=== PATIENT | male | born 1970 | race Caucasian/White ===

== ENCOUNTER 2017-04-21 12:45 | Emergency (ER) | payer SELFPAY ==
[~2017-04-21] VITALS: Ht 180.3 cm; Wt 87.7 kg
[2017-04-21 12:56] VITALS: BP 96/66
== END 2017-04-21 16:30 | disposition left against medical advice (07) ==
LOC: EME 12:45
DX: R42 Dizziness and giddiness (principal); Z53.21 Procedure and treatment not carried out due to patient leaving prior to being seen by health care provider

== ENCOUNTER 2017-04-22 16:39 | Observation (INO) | payer OTHER ==
[~2017-04-22] VITALS: Ht 180.3 cm; Wt 89.9 kg
[2017-04-22 17:33] LABS: HEMATOCRIT 38.2 % (38.0-50.0); HEMOGLOBIN 12.9 G/DL (12.5-16.6); MCH 28.7 PG (29.0-34.0); MCHC 33.8 G/DL (30.0-36.0); MCV 84.9 FL (86-99); PLATELET COUNT 85 K/uL (156-360); RBC DIS.WIDTH-CV 14.7 % (11.8-14.6); RBC DIS.WIDTH-SD 45.4 % (39-53); WHITE BLOOD COUNT 6.4 K/uL (4.1-10.2)
[2017-04-22 17:42] LABS: CHLORIDE 109 mEq/L (99-109); MAGNESIUM 1.9 mg/dL (1.3-2.7); POTASSIUM 3.9 mEq/L (3.7-5.4); SODIUM 142 mEq/L (136-147)
[2017-04-22 17:44] LABS: GLUCOSE 97 mg/dL (70-99); TOTAL PROTEIN 6.7 g/dL (6.4-8.3)
[2017-04-22 17:46] LABS: TOTAL BILIRUBIN 0.4 mg/dL (0.0-1.0)
[2017-04-22 17:47] LABS: ALKALINE PHOSPHATASE 90 IU/L (3-129)
[2017-04-22 17:48] LABS: GFR ESTIMATE (CALCULATED) 39 mL/min/ (58.99-99999)
[2017-04-22 17:49] LABS: AST (GOT) 12 IU/L (2-34); UREA NITROGEN (BUN) 17 mg/dL (9-23)
[2017-04-22 17:51] LABS: ALT (GPT) 13 IU/L (3-49); LIPASE 125 U/L (1.0-51.0)
[2017-04-22 17:57] LABS: TROP-I INTERPRETATION NEGATIVE; TROPONIN-I < 0.01 ng/mL (0.0-0.30)
[2017-04-22 21:46] LABS: APPEARANCE CLEAR ((CLEAR)); BILIRUBIN NEGATIVE; BLOOD NEGATIVE; COLOR YELLOW ((YELLOW)); GLUCOSE (STRIP) NEGATIVE; KETONES NEGATIVE; LEUKOCYTES NEGATIVE; NITRITE NEGATIVE; PROTEIN (STRIP) 30; SPECIFIC GRAVITY 1.016 (1.000-1.030); UROBILINOGEN 0.2 MG/DL (0.2-1.0)
[2017-04-23] MEDS ORDERED: CLONAZEPAM2 MG PO (00:05)
[2017-04-23] MEDS ORDERED: LYRICA300 MG PO (00:06)
[2017-04-23] MEDS ORDERED: PREZCOBIX 8001 EACH PO (00:07)
[2017-04-23] MEDS ORDERED: ABACAVIR-LAMIV1 EAC1 PO (00:07)
[2017-04-23] MEDS ORDERED: ENDOCET 5-3251 EACH PO (00:09)
[2017-04-23] MEDS ORDERED: DEXILANT60 MG PO (00:10)
[2017-04-23] MEDS ORDERED: LEVETIRACETAM500 MG PO (00:12)
[2017-04-23] MEDS ORDERED: LORAZEPAM1 MG PO (00:13)
[2017-04-23 00:15] LABS: PTT 30.5 SEC (25-37)
[2017-04-23 04:17] VITALS: BP 109/60
[2017-04-23 06:40] LABS: HEMATOCRIT 34.1 % (38.0-50.0); MCH 28.1 PG (29.0-34.0); MCHC 32.3 G/DL (30.0-36.0); MCV 87.2 FL (86-99); RBC DIS.WIDTH-CV 15.1 % (11.8-14.6); RED BLOOD COUNT 3.91 M/uL (4.00-5.50); WHITE BLOOD COUNT 3.7 K/uL (4.1-10.2)
[2017-04-23 06:45] LABS: TROP-I INTERPRETATION NEGATIVE; TROPONIN-I < 0.01 ng/mL (0.0-0.30)
[2017-04-23 06:51] LABS: TROP-I INTERPRETATION NEGATIVE; TROPONIN-I < 0.01 ng/mL (0.0-0.30)
[2017-04-23 06:54] LABS: CHLORIDE 113 MEQ/L (99-109); CREATININE 1.7 MG/DL (0.6-1.3); GFR ESTIMATE (CALCULATED) 47 mL/min/ (58.99-99999); GLUCOSE 87 mg/dL (70-99); SODIUM 143 MEQ/L (136-147); UREA NITROGEN (BUN) 14 mg/dL (9-23)
[2017-04-23 06:59] LABS: PLAT.SUFFICIENCY DECREASED
[2017-04-23 07:05] LABS: PLATELET COUNT 56 K/uL (156-360)
[2017-04-23 09:00] VITALS: BP 120/72
[2017-04-23 11:03] LABS: ALBUMIN 3.1 G/DL (3.2-4.8)
== END 2017-04-23 16:18 | disposition home or self-care (01) ==
LOC: EME 16:39 → EDOF 23:33 → ENRESERV 23:34 → EDOF 04-23 00:18 → 5WEST 04-23 00:58
PROVIDERS: Hospitalist; Physician Assistant Medical
DX: I95.1 Orthostatic hypotension (principal); Z21 Asymptomatic human immunodeficiency virus [HIV] infection status; N17.9 Acute kidney failure, unspecified; E86.0 Dehydration; G47.30 Sleep apnea, unspecified; N18.9 Chronic kidney disease, unspecified; Z90.49 Acquired absence of other specified parts of digestive tract; Z82.49 Family history of ischemic heart disease and other diseases of the circulatory system
CPT/HCPCS: 71045; 76770; 80048; 80053; 81003; 82040; 83605; 83690; 83735; 84484; 85027; 85379; 85610; 85730; 86355 90; 86359 90; 86360 90; 87040; 87536; 93005; 99281; 99285; G0378; J1650; J2405; J3010; J7030; J7050

== ENCOUNTER 2017-06-18 18:40 | Inpatient (IN) | payer OTHER ==
[~2017-06-18] VITALS: Ht 180.3 cm; Wt 93.1 kg
[~2017-06-18 18:40] MED LIST: ABACAVIR-LAMIV1 EAC1 PO; CLONAZEPAM2 MG PO; DEXILANT60 MG PO; ENDOCET 5-3251 EACH PO; LEVETIRACETAM500 MG PO; LORAZEPAM1 MG PO; LYRICA300 MG PO; PREZCOBIX 8001 EACH PO
[2017-06-18 19:36] LABS: BASOPHIL (%) 0.5 % (0-1); EOSINOPHIL (%) 5.6 % (0-5); EOSINOPHIL COUNT 0.4 K/uL (0-0.3); HEMATOCRIT 34.4 % (38.0-50.0); HEMOGLOBIN 11.3 G/DL (12.5-16.6); LYMPHOCYTE (%) 27.1 % (15-42); LYMPHOCYTE COUNT 1.7 K/uL (1.0-2.8); MCH 28.3 PG (29.0-34.0); MCHC 32.8 G/DL (30.0-36.0); MONOCYTE (%) 7.7 % (3-12); MONOCYTE COUNT 0.5 K/uL (0-0.8); NEUTROPHIL (%) 58.1 % (45-76); NEUTROPHIL COUNT 3.6 K/uL (1.8-6.4); PLATELET COUNT 74 K/uL (156-360); RBC DIS.WIDTH-CV 16.4 % (11.8-14.6); RBC DIS.WIDTH-SD 50.5 % (39-53); WHITE BLOOD COUNT 6.2 K/uL (4.1-10.2)
[2017-06-18 19:52] LABS: LIPASE 61 U/L (1.0-51.0)
[2017-06-18 19:59] LABS: APPEARANCE CLEAR ((CLEAR)); BILIRUBIN NEGATIVE; BLOOD NEGATIVE; COLOR YELLOW ((YELLOW)); GLUCOSE (STRIP) NEGATIVE; KETONES NEGATIVE; LEUKOCYTES NEGATIVE; NITRITE NEGATIVE; PROTEIN (STRIP) 100; SPECIFIC GRAVITY 1.019 (1.000-1.030); UROBILINOGEN 0.2 MG/DL (0.2-1.0)
[2017-06-18 20:09] LABS: BACTERIA NONE SEEN /HPF; EPITHELIAL CELLS RARE /HPF; HYALINE CASTS 0-5 /LPF; MUCUS TRACE /LPF; RED BLOOD CELLS 0-5 /HPF (0-5); WHITE BLOOD CELLS 0-5 /HPF (0-5)
[2017-06-18 20:20] LABS: ALBUMIN 3.5 g/dL (3.2-4.8)
[2017-06-18 20:21] LABS: CHLORIDE 112 mEq/L (99-109); POTASSIUM 4.2 mEq/L (3.7-5.4); SODIUM 141 mEq/L (136-147)
[2017-06-18 20:23] LABS: GLUCOSE 98 mg/dL (70-99); TOTAL PROTEIN 6.1 g/dL (6.4-8.3)
[2017-06-18 20:25] LABS: TOTAL BILIRUBIN 0.5 mg/dL (0.0-1.0)
[2017-06-18 20:26] LABS: ALKALINE PHOSPHATASE 102 IU/L (3-129)
[2017-06-18 20:27] LABS: CREATININE 1.7 mg/dL (0.6-1.3); GFR ESTIMATE (CALCULATED) 47 mL/min/ (58.99-99999)
[2017-06-18 20:28] LABS: AST (GOT) 20 IU/L (2-34); UREA NITROGEN (BUN) 15 mg/dL (9-23)
[2017-06-18 20:29] LABS: ALT (GPT) 20 IU/L (3-49)
[2017-06-19] VITALS (9 sets, daily range): BP systolic 75–102; BP diastolic 43–61
[2017-06-19] MEDS ORDERED: KLONOPIN2 MG PO (09:48)
[2017-06-19] MEDS ORDERED: LYRICA300 MG PO (09:49)
[2017-06-19] MEDS ORDERED: PERCOCET 5/31 TABLET PO (09:49)
[2017-06-19] MEDS ORDERED: PROTONIX40 MG PO (09:49)
[2017-06-20 00:04] VITALS: BP 86/62
[2017-06-20 03:15] VITALS: BP 94/54
[2017-06-20 06:02] LABS: BASOPHIL (%) 0.7 % (0-1); EOSINOPHIL (%) 7.3 % (0-5); EOSINOPHIL COUNT 0.3 K/uL (0-0.3); HEMATOCRIT 30.1 % (38.0-50.0); HEMOGLOBIN 9.8 G/DL (12.5-16.6); IMMATURE GRANULOCYTE (%) 0.9 % (0.0-0.7); LYMPHOCYTE (%) 29.4 % (15-42); LYMPHOCYTE COUNT 1.3 K/uL (1.0-2.8); MCH 27.7 PG (29.0-34.0); MCHC 32.6 G/DL (30.0-36.0); MONOCYTE (%) 7.9 % (3-12); MONOCYTE COUNT 0.4 K/uL (0-0.8); NEUTROPHIL (%) 53.8 % (45-76); NEUTROPHIL COUNT 2.4 K/uL (1.8-6.4); PLATELET COUNT 67 K/uL (156-360); RBC DIS.WIDTH-CV 16.6 % (11.8-14.6); RBC DIS.WIDTH-SD 50.9 % (39-53); RED BLOOD COUNT 3.54 M/uL (4.00-5.50); WHITE BLOOD COUNT 4.5 K/uL (4.1-10.2)
[2017-06-20 06:17] VITALS: BP 90/56
[2017-06-20 06:30] LABS: CHLORIDE 115 MEQ/L (99-109); CREATININE 1.7 MG/DL (0.6-1.3); GFR ESTIMATE (CALCULATED) 47 mL/min/ (58.99-99999); GLUCOSE 93 mg/dL (70-99); POTASSIUM 3.7 MEQ/L (3.7-5.4); SODIUM 141 MEQ/L (136-147); UREA NITROGEN (BUN) 11 mg/dL (9-23)
[2017-06-20 07:47] VITALS: BP 94/54
[2017-06-20 10:09] LABS: ALBUMIN 2.9 G/DL (3.2-4.8); ALKALINE PHOSPHATASE 71 IU/L (3-129); ALT (GPT) 10 IU/L (3-49); AST (GOT) 13 IU/L (2-34); DIRECT BILIRUBIN 0.1 mg/dL (0.0-0.3); PHOSPHORUS 3.6 mg/dL (2.5-4.9); TOTAL BILIRUBIN 0.2 MG/DL (0.0-1.0); TOTAL PROTEIN 4.8 G/DL (6.4-8.3)
[2017-06-20 16:48] VITALS: BP 100/58
[2017-06-20 21:09] LABS: CD4/CD8 Ratio 0.22 (0.86-5.00)
[2017-06-20 23:36] VITALS: BP 106/61
[2017-06-21 01:24] VITALS: BP 123/70
[2017-06-21 05:55] LABS: HEMATOCRIT 29.6 % (38.0-50.0); HEMOGLOBIN 9.8 G/DL (12.5-16.6); MCH 27.8 PG (29.0-34.0); MCHC 33.1 G/DL (30.0-36.0); MCV 84.1 FL (86-99); PLATELET COUNT 77 K/uL (156-360); RBC DIS.WIDTH-CV 16.4 % (11.8-14.6); RBC DIS.WIDTH-SD 49.2 % (39-53); RED BLOOD COUNT 3.52 M/uL (4.00-5.50); WHITE BLOOD COUNT 4.5 K/uL (4.1-10.2)
[2017-06-21 06:24] LABS: CHLORIDE 113 MEQ/L (99-109); GFR ESTIMATE (CALCULATED) 39 mL/min/ (58.99-99999); GLUCOSE 89 mg/dL (70-99); SODIUM 140 MEQ/L (136-147); UREA NITROGEN (BUN) 13 mg/dL (9-23)
[2017-06-21 07:19] VITALS: BP 114/69
[2017-06-21 15:04] VITALS: BP 109/64
[2017-06-21 23:53] VITALS: BP 108/66
[2017-06-22 06:17] LABS: HEMOGLOBIN 10.3 G/DL (12.5-16.6); MCH 28.1 PG (29.0-34.0); MCHC 33.2 G/DL (30.0-36.0); MCV 84.5 FL (86-99); PLATELET COUNT 93 K/uL (156-360); RBC DIS.WIDTH-CV 16.7 % (11.8-14.6); RBC DIS.WIDTH-SD 50.6 % (39-53); RED BLOOD COUNT 3.67 M/uL (4.00-5.50); WHITE BLOOD COUNT 4.2 K/uL (4.1-10.2)
[2017-06-22 06:36] LABS: CHLORIDE 111 MEQ/L (99-109); CREATININE 1.8 MG/DL (0.6-1.3); GFR ESTIMATE (CALCULATED) 44 mL/min/ (58.99-99999); GLUCOSE 91 mg/dL (70-99); POTASSIUM 3.9 MEQ/L (3.7-5.4); SODIUM 141 MEQ/L (136-147); UREA NITROGEN (BUN) 13 mg/dL (9-23)
[2017-06-22 08:06] VITALS: BP 118/70
[2017-06-22] MEDS ORDERED: ZOFRAN4 MG PO (10:46)
[2017-06-22] MEDS ORDERED: FLAGYL500 MG PO (10:46)
[2017-06-22 12:26] VITALS: BP 105/61
[2017-06-22 14:13] VITALS: BP 107/66
[2017-06-22 16:14] VITALS: BP 120/65
[2017-06-23] MEDS ORDERED: MOTRIN600 MG PO (19:27)
[2017-06-25 06:39] LABS: QGTB-NIL 0.11 IU/mL (()); QUANTIFERON TB GOLD NEGATIVE (Negative); TB AG-NIL 0.05 IU/mL (())
== END 2017-06-22 17:29 | disposition home health service (06) | DRG 385 ==
LOC: EME 18:40 → 5EAST 23:23 → EDOF 23:23 → ENRESERV 23:24 → 5EAST 06-19 01:12
PROVIDERS: Emergency Medicine; Hospitalist; Internal Medicine
DX: K51.50 Left sided colitis without complications (principal); B20 Human immunodeficiency virus [HIV] disease; E27.40 Unspecified adrenocortical insufficiency; R65.10 Systemic inflammatory response syndrome (SIRS) of non-infectious origin without acute organ dysfunction; N17.9 Acute kidney failure, unspecified; E86.0 Dehydration; R68.0 Hypothermia, not associated with low environmental temperature; N18.3 Chronic kidney disease, stage 3 (moderate); G62.9 Polyneuropathy, unspecified; Z91.14 Patient's other noncompliance with medication regimen; Z91.19 Patient's noncompliance with other medical treatment and regimen
CPT/HCPCS: 74176; 80048; 80053; 80076; 80400; 81003; 82533 91; 82948; 83605; 83690; 84100; 85025; 85027; 86355 90; 86359 90; 86360 90; 86480 90; 87177; 87206; 87329; 87493; 87506; 99281; 99285; J0744; J0834; J1644; J2270; J2405; J7030; J7040; J7050; S0030

== ENCOUNTER 2017-06-23 16:42 | Emergency (ER) | payer OTHER ==
[~2017-06-23] VITALS: Ht 180.3 cm; Wt 93.0 kg
[~2017-06-23 16:42] MED LIST changes: +FLAGYL500 MG PO; +KLONOPIN2 MG PO; +PERCOCET 5/31 TABLET PO; +PROTONIX40 MG PO; +ZOFRAN4 MG PO
[2017-06-23] MEDS ORDERED: MOTRIN600 MG PO (19:27)
[2017-06-23 19:39] VITALS: BP 124/78
== END 2017-06-23 19:40 | disposition home or self-care (01) ==
LOC: EME 16:42
DX: S93.602A Unspecified sprain of left foot, initial encounter (principal); W01.0XXA Fall on same level from slipping, tripping and stumbling without subsequent striking against object, initial encounter
CPT/HCPCS: 73630; 99281; 99284

== ENCOUNTER 2017-06-30 13:39 | Emergency (ER) | payer OTHER ==
[~2017-06-30] VITALS: Ht 180.3 cm; Wt 89.1 kg
[~2017-06-30 13:39] MED LIST changes: +MOTRIN600 MG PO
[2017-06-30 14:53] LABS: HEMATOCRIT 42.1 % (38.0-50.0); MCH 28.3 PG (29.0-34.0); MCHC 32.8 G/DL (30.0-36.0); MCV 86.3 FL (86-99); RBC DIS.WIDTH-CV 18.1 % (11.8-14.6); RBC DIS.WIDTH-SD 56.5 % (39-53); WHITE BLOOD COUNT 4.8 K/uL (4.1-10.2)
[2017-06-30 14:54] LABS: HEMOGLOBIN 13.8 G/DL (12.5-16.6); PLATELET COUNT 163 K/uL (156-360); RED BLOOD COUNT 4.88 M/uL (4.00-5.50)
[2017-06-30 15:02] LABS: CHLORIDE 106 mEq/L (99-109); POTASSIUM 4.3 mEq/L (3.7-5.4); SODIUM 141 mEq/L (136-147)
[2017-06-30 15:03] LABS: GLUCOSE 95 mg/dL (70-99)
[2017-06-30 15:07] LABS: CREATININE 1.9 mg/dL (0.6-1.3); GFR ESTIMATE (CALCULATED) 41 mL/min/ (58.99-99999)
[2017-06-30 15:08] LABS: UREA NITROGEN (BUN) 12 mg/dL (9-23)
[2017-06-30 19:41] LABS: APPEARANCE CLEAR ((CLEAR)); BILIRUBIN NEGATIVE; BLOOD SMALL; COLOR YELLOW ((YELLOW)); GLUCOSE (STRIP) NEGATIVE; KETONES NEGATIVE; LEUKOCYTES NEGATIVE; NITRITE NEGATIVE; PROTEIN (STRIP) 100; SPECIFIC GRAVITY 1.017 (1.000-1.030); UROBILINOGEN 0.2 MG/DL (0.2-1.0)
[2017-06-30 19:44] LABS: BACTERIA NONE SEEN /HPF; EPITHELIAL CELLS RARE /HPF; HYALINE CASTS 0-5 /LPF; MUCUS TRACE /LPF; RED BLOOD CELLS 0-5 /HPF (0-5); UCUL ADDED? NO; WHITE BLOOD CELLS 0-5 /HPF (0-5)
[2017-06-30] MEDS ORDERED: TRAMADOL HCL50 MG PO (20:29)
[2017-06-30 21:46] VITALS: BP 94/69
== END 2017-06-30 21:47 | disposition home or self-care (01) ==
LOC: EME 13:39
PROVIDERS: Nurse Practitioner Family
PROC: 2W39X1Z Immobilization of Left Upper Extremity using Splint (ICD-10-PCS; principal; 2017-06-30)
DX: S42.302A Unspecified fracture of shaft of humerus, left arm, initial encounter for closed fracture (principal); R55 Syncope and collapse; R42 Dizziness and giddiness; W18.39XA Other fall on same level, initial encounter; B20 Human immunodeficiency virus [HIV] disease
CPT/HCPCS: 70450; 71046; 73060; 80048; 81003; 85027; 93005; 99281; 99285; J1885

== ENCOUNTER 2017-07-24 18:39 | Emergency (ER) | payer OTHER ==
[~2017-07-24] VITALS: Ht 180.3 cm; Wt 92.5 kg
[~2017-07-24 18:39] MED LIST changes: +TRAMADOL HCL50 MG PO
[2017-07-24 19:16] LABS: HEMATOCRIT 37.5 % (38.0-50.0); HEMOGLOBIN 12.5 G/DL (12.5-16.6); MCH 29.3 PG (29.0-34.0); MCHC 33.3 G/DL (30.0-36.0); PLATELET COUNT 152 K/uL (156-360); RBC DIS.WIDTH-CV 17.8 % (11.8-14.6); RBC DIS.WIDTH-SD 56.9 % (39-53); RED BLOOD COUNT 4.26 M/uL (4.00-5.50); WHITE BLOOD COUNT 6.3 K/uL (4.1-10.2)
[2017-07-24 19:25] LABS: ALBUMIN 4.1 g/dL (3.2-4.8); CHLORIDE 109 mEq/L (99-109); POTASSIUM 3.6 mEq/L (3.7-5.4); SODIUM 140 mEq/L (136-147)
[2017-07-24 19:28] LABS: TOTAL PROTEIN 7.1 g/dL (6.4-8.3)
[2017-07-24 19:29] LABS: TOTAL BILIRUBIN 0.3 mg/dL (0.0-1.0)
[2017-07-24 19:31] LABS: ALKALINE PHOSPHATASE 108 IU/L (3-129); CREATININE 1.8 mg/dL (0.6-1.3); GFR ESTIMATE (CALCULATED) 44 mL/min/ (58.99-99999); GLUCOSE 46 mg/dL (70-99)
[2017-07-24 19:32] LABS: UREA NITROGEN (BUN) 15 mg/dL (9-23)
[2017-07-24 19:33] LABS: AST (GOT) 14 IU/L (2-34)
[2017-07-24 19:34] LABS: ALT (GPT) 26 IU/L (3-49)
[2017-07-24 19:35] LABS: LIPASE 83 U/L (1.0-51.0)
[2017-07-24 20:23] LABS: APPEARANCE CLEAR ((CLEAR)); BILIRUBIN NEGATIVE; BLOOD NEGATIVE; COLOR COLORLESS ((YELLOW)); GLUCOSE (STRIP) NEGATIVE; KETONES NEGATIVE; LEUKOCYTES NEGATIVE; NITRITE NEGATIVE; PROTEIN (STRIP) NEGATIVE; SPECIFIC GRAVITY 1.003 (1.000-1.030); UCUL ADDED? NO; UROBILINOGEN 0.2 MG/DL (0.2-1.0)
[2017-07-24 22:49] LABS: C DIFF TOXIN POSITIVE (NEGATIVE)
[2017-07-24] MEDS ORDERED: ZOFRAN4 MG SL (22:58)
[2017-07-24] MEDS ORDERED: BENTYL10 MG PO (22:58)
[2017-07-24] MEDS ORDERED: VANCOCIN HCL125 MG PO (22:58)
[2017-07-25 00:22] VITALS: BP 138/91
== END 2017-07-25 00:23 | disposition home or self-care (01) ==
LOC: EME 18:39
PROVIDERS: Physician Assistant
DX: A04.72 Enterocolitis due to Clostridium difficile, not specified as recurrent (principal); B20 Human immunodeficiency virus [HIV] disease; N18.9 Chronic kidney disease, unspecified; K21.9 Gastro-esophageal reflux disease without esophagitis
CPT/HCPCS: 74176; 80053; 81003; 82948; 83690; 85027; 87493; 99281; 99284; J3010; J7030

== ENCOUNTER 2017-08-20 20:49 | Emergency (ER) | payer OTHER ==
[~2017-08-20] VITALS: Ht 180.3 cm; Wt 90.8 kg
[~2017-08-20 20:49] MED LIST changes: +BENTYL10 MG PO; +LYRICA200 MG PO; -PERCOCET 5/31 TABLET PO; +PERCOCET 7.51 TABLET PO; +VANCOCIN HCL125 MG PO; +ZOFRAN4 MG SL
[2017-08-20 21:50] LABS: HEMATOCRIT 37.3 % (38.0-50.0); HEMOGLOBIN 12.3 G/DL (12.5-16.6); MCH 29.2 PG (29.0-34.0); MCV 88.6 FL (86-99); PLATELET COUNT 130 K/uL (156-360); RBC DIS.WIDTH-CV 16.9 % (11.8-14.6); RBC DIS.WIDTH-SD 54.7 % (39-53); RED BLOOD COUNT 4.21 M/uL (4.00-5.50)
[2017-08-20 21:58] LABS: CHLORIDE 112 mEq/L (99-109); SODIUM 142 mEq/L (136-147)
[2017-08-20 22:00] LABS: GLUCOSE 107 mg/dL (70-99)
[2017-08-20 22:04] LABS: CREATININE 1.8 mg/dL (0.6-1.3); GFR ESTIMATE (CALCULATED) 44 mL/min/ (58.99-99999); UREA NITROGEN (BUN) 10 mg/dL (9-23)
[2017-08-20 23:05] LABS: TROP-I INTERPRETATION NEGATIVE; TROPONIN-I < 0.01 ng/mL (0.0-0.30)
[2017-08-21 00:43] VITALS: BP 108/51
== END 2017-08-21 00:44 | disposition home or self-care (01) ==
LOC: EME 20:49
PROVIDERS: Emergency Medicine
DX: R55 Syncope and collapse (principal); E86.0 Dehydration; I45.10 Unspecified right bundle-branch block; B20 Human immunodeficiency virus [HIV] disease
CPT/HCPCS: 80048; 84484; 85027; 93005; 99281; 99284; J7030

== ENCOUNTER 2017-08-21 08:26 | Emergency (ER) | payer OTHER ==
[~2017-08-21] VITALS: Ht 180.3 cm; Wt 92.1 kg
[2017-08-21 08:30] VITALS: BP 105/72
== END 2017-08-21 09:12 | disposition left against medical advice (07) ==
LOC: EME 08:26
DX: M54.5 Low back pain (principal); M62.838 Other muscle spasm; F13.20 Sedative, hypnotic or anxiolytic dependence, uncomplicated; F17.200 Nicotine dependence, unspecified, uncomplicated; Z21 Asymptomatic human immunodeficiency virus [HIV] infection status
CPT/HCPCS: 99281; 99282

== ENCOUNTER 2017-08-22 18:05 | Observation (INO) | payer OTHER ==
[~2017-08-22] VITALS: Ht 180.3 cm; Wt 91.9 kg
[2017-08-22 19:09] LABS: HEMATOCRIT 34.6 % (38.0-50.0); HEMOGLOBIN 11.6 G/DL (12.5-16.6); MCH 29.4 PG (29.0-34.0); MCHC 33.5 G/DL (30.0-36.0); MCV 87.6 FL (86-99); PLATELET COUNT 102 K/uL (156-360); RBC DIS.WIDTH-CV 16.8 % (11.8-14.6); RBC DIS.WIDTH-SD 54.1 % (39-53); RED BLOOD COUNT 3.95 M/uL (4.00-5.50); WHITE BLOOD COUNT 6.1 K/uL (4.1-10.2)
[2017-08-22 19:35] LABS: CHLORIDE 107 mEq/L (99-109); POTASSIUM 3.6 mEq/L (3.7-5.4); SODIUM 137 mEq/L (136-147)
[2017-08-22 19:41] LABS: CREATININE 1.8 mg/dL (0.6-1.3); GFR ESTIMATE (CALCULATED) 44 mL/min/ (58.99-99999)
[2017-08-22 19:42] LABS: GLUCOSE 75 mg/dL (70-99); UREA NITROGEN (BUN) 8 mg/dL (9-23)
[2017-08-23 00:34] LABS: ALBUMIN 3.7 g/dL (3.2-4.8)
[2017-08-23 00:36] LABS: TOTAL PROTEIN 6.3 g/dL (6.4-8.3)
[2017-08-23 00:38] LABS: TOTAL BILIRUBIN 0.3 mg/dL (0.0-1.0)
[2017-08-23 00:39] LABS: ALKALINE PHOSPHATASE 97 IU/L (3-129)
[2017-08-23 00:41] LABS: AST (GOT) 10 IU/L (2-34); DIRECT BILIRUBIN 0.1 mg/dL (0.0-0.3)
[2017-08-23 00:42] LABS: ALT (GPT) 10 IU/L (3-49); LIPASE 63 U/L (1.0-51.0)
[2017-08-23] MEDS ORDERED: STRIBILD TABLE1 EACH PO (00:46)
[2017-08-23 01:10] LABS: TROP-I INTERPRETATION NEGATIVE; TROPONIN-I < 0.01 ng/mL (0.0-0.30)
[2017-08-23 04:16] LABS: SERUM ETHYL ALCOHOL < 10 mg/dL
[2017-08-23 05:15] VITALS: BP 97/55
[2017-08-23 07:30] VITALS: BP 103/58; BP 95/55; BP 99/59
[2017-08-23 11:15] VITALS: BP 92/56
[2017-08-23 17:20] VITALS: BP 118/67
[2017-08-23 19:30] VITALS: BP 111/67
[2017-08-23 23:33] VITALS: BP 89/61
[2017-08-24 04:22] VITALS: BP 96/55
[2017-08-24 09:17] VITALS: BP 115/74
[2017-08-24 17:03] VITALS: BP 115/61
[2017-08-24 20:00] VITALS: BP 132/82
[2017-08-24 23:56] VITALS: BP 109/63
[2017-08-25] VITALS: BP 112/80
[2017-08-25 04:00] VITALS: BP 112/82
[2017-08-25 08:00] VITALS: BP 126/90
[2017-08-25 08:10] LABS: HEMATOCRIT 32.5 % (38.0-50.0); HEMOGLOBIN 10.6 G/DL (12.5-16.6); MCH 28.7 PG (29.0-34.0); MCHC 32.6 G/DL (30.0-36.0); MCV 88.1 FL (86-99); PLATELET COUNT 78 K/uL (156-360); RBC DIS.WIDTH-CV 16.6 % (11.8-14.6); RBC DIS.WIDTH-SD 53.7 % (39-53); RED BLOOD COUNT 3.69 M/uL (4.00-5.50)
[2017-08-25 08:32] LABS: CHLORIDE 114 MEQ/L (99-109); CREATININE 1.7 MG/DL (0.6-1.3); GFR ESTIMATE (CALCULATED) 47 mL/min/ (58.99-99999); GLUCOSE 83 mg/dL (70-99); POTASSIUM 4.1 MEQ/L (3.7-5.4); UREA NITROGEN (BUN) 11 mg/dL (9-23)
[2017-08-25 08:45] LABS: SODIUM 144 MEQ/L (136-147)
[2017-08-25 11:46] VITALS: BP 106/82
[2017-08-25 15:34] VITALS: BP 110/80
[2017-08-25 19:57] VITALS: BP 122/78
[2017-08-26 04:33] LABS: ADRENOCORTICOTROPIC HORMONE+ 12 pg/mL (6-50)
[2017-08-26 08:10] VITALS: BP 112/78
[2017-08-26 11:49] LABS: CD4/CD8 Ratio 0.12 (0.86-5.00)
[2017-08-26 12:21] VITALS: BP 118/66
[2017-08-26] MEDS ORDERED: OSELTAMIVIR PHO30 MG PO (15:50)
[2017-08-26] MEDS ORDERED: ANTIVERT25 MG PO (15:51)
[2017-08-26] MEDS ORDERED: HYDROCORTISONE5 MG PO ×3 (15:52→15:53)
[2017-08-26] MEDS ORDERED: GENVOYA TABLET1 EACH PO (15:57)
[2017-08-28 13:01] LABS: RENIN ACTIVITY 0.12 ng/mL/h (0.25-5.82)
== END 2017-08-26 17:51 | disposition home or self-care (01) ==
LOC: EME 18:05 → EDOF 08-23 03:06 → 4SOUTH 08-23 03:06 → ENRESERV 08-23 03:16 → 4SOUTH 08-23 05:05
PROVIDERS: Internal Medicine; Internal Medicine Infectious Disease; Nurse Practitioner Adult Health
DX: I95.1 Orthostatic hypotension (principal); E27.40 Unspecified adrenocortical insufficiency; B20 Human immunodeficiency virus [HIV] disease; N18.3 Chronic kidney disease, stage 3 (moderate); J10.1 Influenza due to other identified influenza virus with other respiratory manifestations; F13.10 Sedative, hypnotic or anxiolytic abuse, uncomplicated; E87.6 Hypokalemia; G89.29 Other chronic pain; Z86.19 Personal history of other infectious and parasitic diseases; D69.6 Thrombocytopenia, unspecified; D72.819 Decreased white blood cell count, unspecified; Z91.14 Patient's other noncompliance with medication regimen; Z91.19 Patient's noncompliance with other medical treatment and regimen; Z90.49 Acquired absence of other specified parts of digestive tract; Z87.891 Personal history of nicotine dependence
CPT/HCPCS: 70450; 70551; 71046; 80048; 80076; 81003; 82024 90; 82088 90; 82533 91; 83519 90; 83690; 84244 90; 84484; 85027; 86355 90; 86359 90; 86360 90; 87502; 87536; 87651 90; 93005; 99281; 99283; G0378; G0480; G8987 GO CI; G8988 GO CH; J1650; J7030